=== PATIENT | male | born 1980 | race Hispanic/Latino ===

== ENCOUNTER 2018-10-24 12:39 | Emergency (ER) | payer SELFPAY ==
[2018-10-24] MEDS ORDERED: Lidocaine 2% PF 5 ML VIAL ONE (12:52)
[2018-10-24] MEDS ORDERED: Adacel (T-DAP) 0.5 ML SYRINGE ONE (12:56)
== END 2018-10-24 13:05 | disposition home or self-care (01) ==
LOC: BURERS 12:39
DX: S61.012A Laceration without foreign body of left thumb without damage to nail, initial encounter (principal); W26.0XXA Contact with knife, initial encounter
CPT/HCPCS: 12001; 90471; 90715; J2001

== ENCOUNTER 2020-08-05 15:16 | Observation (INO) | payer SELFPAY ==
[~2020-08-05 15:16] MED LIST: Iopamidol 370 76% 100 ML VIAL ONE
[2020-08-05] MEDS ORDERED: Ondansetron PF 4 MG/2 ML Vial ONE (15:46)
[2020-08-05] MEDS ORDERED: Morphine 4 MG/ML VIAL ONE (15:46)
[2020-08-05 16:08] LABS: Albumin 4.1 g/dL (3.5-5.0); Alkaline Phosphatase 93 U/L (40-110); BUN (Urea Nitrogen) 11 mg/dL (8.9-20.6); Calc. Creatinine Clearance 0 mL/min (70-130); Calcium 8.7 mg/dL (7.8-10.44); Chloride 98 mmol/L (98-107); Globulin 6.2 g/dL (2.4-3.5); Glucose 236 mg/dL (70-105); Lipase 546 U/L (8-78); Potassium 3.8 mmol/L (3.5-5.1); Protein, Total 10.3 g/dL (6.0-8.3); Sodium 131 mmol/L (136-145)
[2020-08-05 16:28] LABS: #Basophils 0.2 thou/uL (0.0-0.2); #Lymphocytes 1.8 thou/uL (1.20-3.40); #Monocytes 0.7 thou/uL (0.11-0.59); #Neutrophils 11.9 thou/uL (1.40-6.50); %Basophils 1.3 % (0.0-1.0); %Eosinophils 0.2 % (0.0-10.0); %Lymphocytes 12.3 % (21.0-51.0); %Neutrophils 81.3 % (42.0-75.0); Hemoglobin 18.5 g/dL (14.0-18.0); Mean Corpuscular Hemoglobin 34.9 pg (27.0-31.0); Mean Corpuscular Volume 88.2 fL (78.0-98.0); Platelet Count 259 thou/uL (130-400); RBC Distribution Width 11.6 % (11.5-14.5); White Blood Cell (WBC) Count 14.6 thou/uL (4.8-10.8)
[2020-08-05 16:33] LABS: Bilirubin, Total 1.2 mg/dL (0.2-1.2)
[2020-08-05 16:34] LABS: Anion Gap 19 mmol/L (10-20); Carbon Dioxide 18 mmol/L (22-29)
[2020-08-05 16:35] LABS: ALT (SGPT) Less than 35 U/L (8-55); AST (SGOT) Less than 15 U/L (5-34); MDiff Complete? YES
[2020-08-05 18:02] LABS: SARS-CoV-2 NAA Rapid Test Not Detected (NotDetected)
[2020-08-05 18:28] VITALS: BMI 33.8
[2020-08-05] MEDS ORDERED: Sodium Chloride 0.9% 1,000 ML IV SCH (18:30)
[2020-08-05] MEDS: Morphine 4 MG/ML VIAL SLOW IVP PRN ×2 (18:50→22:07)
[2020-08-05] MEDS ORDERED: Promethazine HCl 25 MG/ML VIAL IM PRN (19:58)
[2020-08-05] MEDS: Sodium Chloride 0.9% 1,000 ML IV SCH (22:12)
[2020-08-06] MEDS: Sodium Chloride 0.9% 1,000 ML IV SCH ×8 (02:20→15:20)
[2020-08-06 06:20] LABS: #Basophils 0.1 thou/uL (0.0-0.2); #Lymphocytes 1.6 thou/uL (1.20-3.40); #Monocytes 0.8 thou/uL (0.11-0.59); #Neutrophils 8.9 thou/uL (1.40-6.50); %Basophils 0.9 % (0.0-1.0); %Eosinophils 0.2 % (0.0-10.0); %Lymphocytes 14.2 % (21.0-51.0); %Monocytes 7.1 % (0.0-10.0); %Neutrophils 77.6 % (42.0-75.0); Hemoglobin 15.6 g/dL (14.0-18.0); Mean Corpuscular HGB CONC 36.3 g/dL (32.0-36.0); Mean Corpuscular Hemoglobin 32.1 pg (27.0-31.0); Mean Corpuscular Volume 88.4 fL (78.0-98.0); Mean Platelet Volume 7.5 fL (7.4-10.4); Platelet Count 222 thou/uL (130-400); RBC Distribution Width 11.8 % (11.5-14.5); Red Blood Cell (RBC) Count 4.87 mill/uL (4.70-6.10); White Blood Cell (WBC) Count 11.5 thou/uL (4.8-10.8)
[2020-08-06 06:35] LABS: Cardiac Risk 22.8 (Less than 4.5)
[2020-08-06 07:01] LABS: Triglycerides 2576 mg/dL (Less than 150)
[2020-08-06 07:03] LABS: ALT (SGPT) 21 U/L (8-55); AST (SGOT) 14 U/L (5-34); Albumin 3.6 g/dL (3.5-5.0); Alkaline Phosphatase 80 U/L (40-110); BUN (Urea Nitrogen) 5 mg/dL (8.9-20.6); Bilirubin, Total 1.9 mg/dL (0.2-1.2); CRP (Inflammatory) 9.25 mg/dL (= or < 0.5); Calc. Creatinine Clearance 0 mL/min (70-130); Calcium 8.1 mg/dL (7.8-10.44); Carbon Dioxide Less than 8 mmol/L (22-29); Chloride 104 mmol/L (98-107); Cholesterol 524 mg/dl (< 200 Desired); Globulin 3.7 g/dL (2.4-3.5); Glucose 203 mg/dL (70-105); HDL Cholesterol 23 mg/dL (>60 Neg Risk); Lipase 390 U/L (8-78); Potassium 3.7 mmol/L (3.5-5.1); Protein, Total 7.3 g/dL (6.0-8.3); Sodium 133 mmol/L (136-145)
[2020-08-06 11:21] LABS: Hemoglobin A1c 10.7 % (4.0-6.0)
[2020-08-06] MEDS: Morphine 4 MG/ML VIAL SLOW IVP PRN ×2 (16:19→20:52)
[2020-08-07] MEDS: Sodium Chloride 0.9% 1,000 ML IV SCH ×4 (00:15→13:28)
[2020-08-07 05:28] LABS: #Basophils 0.1 thou/uL (0.0-0.2); #Lymphocytes 1.7 thou/uL (1.20-3.40); #Monocytes 1.1 thou/uL (0.11-0.59); #Neutrophils 8.5 thou/uL (1.40-6.50); %Basophils 0.8 % (0.0-1.0); %Eosinophils 0.3 % (0.0-10.0); %Lymphocytes 15.1 % (21.0-51.0); %Monocytes 9.7 % (0.0-10.0); %Neutrophils 74.1 % (42.0-75.0); Hemoglobin 15.3 g/dL (14.0-18.0); Mean Corpuscular HGB CONC 35.9 g/dL (32.0-36.0); Mean Corpuscular Hemoglobin 31.6 pg (27.0-31.0); Mean Platelet Volume 8.2 fL (7.4-10.4); Platelet Count 206 thou/uL (130-400); RBC Distribution Width 11.5 % (11.5-14.5); Red Blood Cell (RBC) Count 4.85 mill/uL (4.70-6.10); White Blood Cell (WBC) Count 11.4 thou/uL (4.8-10.8)
[2020-08-07 05:42] LABS: ALT (SGPT) 16 U/L (8-55); AST (SGOT) 11 U/L (5-34); Albumin 3.8 g/dL (3.5-5.0); Alkaline Phosphatase 90 U/L (40-110); Anion Gap 17 mmol/L (10-20); BUN (Urea Nitrogen) 5 mg/dL (8.9-20.6); Bilirubin, Total 2.3 mg/dL (0.2-1.2); CRP (Inflammatory) 23.34 mg/dL (= or < 0.5); Calc. Creatinine Clearance 166 mL/min (70-130); Calcium 8.6 mg/dL (7.8-10.44); Carbon Dioxide 17 mmol/L (22-29); Chloride 104 mmol/L (98-107); Globulin 3.3 g/dL (2.4-3.5); Glucose 169 mg/dL (70-105); Lipase 154 U/L (8-78); Potassium 3.5 mmol/L (3.5-5.1); Protein, Total 7.1 g/dL (6.0-8.3); Sodium 134 mmol/L (136-145)
[2020-08-07 10:26] LABS: Cardiac Risk 11.1 (Less than 4.5); Cholesterol 365 mg/dl (< 200 Desired); HDL Cholesterol 33 mg/dL (>60 Neg Risk); Triglycerides 856 mg/dL (Less than 150)
[2020-08-07 10:56] LABS: Glucose 161 mg/dL (70-105)
[2020-08-07] MEDS: Morphine 4 MG/ML VIAL SLOW IVP PRN (11:27)
[2020-08-07 13:07] VITALS: BP 135/82; TEMP 98.7
== END 2020-08-07 13:45 | disposition short-term general hospital (02) ==
LOC: BURERS 15:16 → BURMED 17:38
PROVIDERS: ADMIT Family Medicine; ATTEND Family Medicine
DX: K85.90 Acute pancreatitis without necrosis or infection, unspecified (principal); E78.5 Hyperlipidemia, unspecified; J98.11 Atelectasis; Z20.822 Contact with and (suspected) exposure to COVID-19
CPT/HCPCS: 0240U; 36415; 36416; 74177; 80053; 80061; 83036; 83605; 83690; 85025; 86140; 96374; 96375; 96376; G0378; J2270; J2405; J2550; J7050; Q9967

== ENCOUNTER 2022-05-04 09:59 | Emergency (ER) | payer SELFPAY ==
[2022-05-04] MEDS ORDERED: Lidocaine 1% w/Epinephrine 1:100K 50 ML VIAL ONE (10:14)
[2022-05-04] MEDS ORDERED: Boostrix 0.5 ML (Tdap) VIAL (>/=7 yrs of age) ONE (10:30)
== END 2022-05-04 10:30 | disposition home or self-care (01) ==
LOC: BURERS 09:59
DX: K64.5 Perianal venous thrombosis (principal)
CPT/HCPCS: 46320; 90471; 90715

== ENCOUNTER 2023-06-20 16:49 | Emergency (ER) | payer SELFPAY ==
[2023-06-20] MEDS ORDERED: fentaNYL 50 mcg/mL 1 mL Vial ONE ×2 (17:19→21:26)
[2023-06-20 17:21] LABS: #Basophils 0.2 thou/uL (0.0-0.2); #Lymphocytes 1.2 thou/uL (1.20-3.40); #Monocytes 1.5 thou/uL (0.11-0.59); #Neutrophils 13.5 thou/uL (1.40-6.50); %Basophils 1.2 % (0.0-1.0); %Eosinophils 0.1 % (0.0-10.0); %Lymphocytes 7.4 % (21.0-51.0); %Monocytes 9.3 % (0.0-10.0); %Neutrophils 82.1 % (42.0-75.0); Hemoglobin 14.1 g/dL (14.0-18.0); Mean Corpuscular HGB CONC 35.3 g/dL (32.0-36.0); Mean Corpuscular Hemoglobin 30.7 pg (27.0-31.0); Mean Corpuscular Volume 87.1 fl (78.0-98.0); Mean Platelet Volume 7.3 fL (7.4-10.4); Platelet Count 292 10x3/uL (130-400); RBC Distribution Width 10.3 % (11.5-14.5); Red Blood Cell (RBC) Count 4.59 mill/uL (4.70-6.10); White Blood Cell (WBC) Count 16.4 10x3/uL (4.8-10.8)
[2023-06-20 17:23] LABS: Bilirubin Negative (Negative); Blood, Urine Trace (Negative); Clarity Cloudy (Clear); Glucose, Urine (Dipstick) >=1000 mg/dL (Negative); Ketone, Urine 15 mg/dL (Negative); Leukocyte Small (Negative); Nitrite Positive (Negative); Protein, Urine (Dipstick) 30 mg/dL (Neg-Trace)
[2023-06-20 17:29] LABS: Bacteria/HPF 4+ HPF (None Seen); CAUTI Indications for Culture Dysuria,urgency,freq; RBC/HPF 0-3 HPF (0-3); Squamous Epithelial 0-3 HPF (0-3); WBC/HPF 21-50 HPF (0-3)
[2023-06-20 17:30] LABS: Urine Culture Reflex Yes Yes
[2023-06-20] MEDS ORDERED: cefTRIAXone (ROCEPHIN) 2 GM VIAL ONE (17:31)
[2023-06-20] MEDS ORDERED: Sodium Chloride 0.9% 100 ML ONE (17:32)
[2023-06-20 17:39] LABS: Troponin I Less than 0.010 ng/mL (< 0.028)
[2023-06-20 17:40] LABS: ALT (SGPT) 13 U/L (8-55); AST (SGOT) 11 U/L (5-34); Albumin 3.7 g/dL (3.5-5.0); Alkaline Phosphatase 107 U/L (40-110); Anion Gap 16 mmol/L (10-20); BUN (Urea Nitrogen) 8 mg/dL (8.9-20.6); Bilirubin, Total 1.9 mg/dL (0.2-1.2); CK (CPK) 18 U/L (30-200); Calc. Creatinine Clearance 0 mL/min (70-130); Calcium 8.6 mg/dL (7.8-10.44); Carbon Dioxide 20 mmol/L (22-29); Chloride 94 mmol/L (98-107); Estimated GFR 108; Globulin 3.4 g/dL (2.4-3.5); Lipase 18 U/L (8-78); Protein, Total 7.1 g/dL (6.0-8.3); Sodium 126 mmol/L (136-145)
[2023-06-20 17:41] LABS: Critical Call Chemistry esr.ak1@1735; Glucose 457 mg/dL (70-105)
[2023-06-20 18:17] LABS: Magnesium 1.6 mg/dL (1.6-2.6)
[2023-06-20] MEDS ORDERED: Magnesium 2 GM/50 ML BAG (IN WATER) ONE (19:40)
== END 2023-06-21 00:31 | disposition short-term general hospital (02) ==
LOC: BURERS 16:49
DX: N10 Acute pyelonephritis (principal); E11.65 Type 2 diabetes mellitus with hyperglycemia
CPT/HCPCS: 36415; 36416; 71275; 74174; 80053; 81001; 82010; 82550; 83605; 83690; 83735; 84484; 85025; 85379; 87040; 87077; 87086; 87186; 93005; 96361; 96365; 96367; 96375; 96376; J0696; J3010; J3475; J3490